=== PATIENT | female | born 1970 | race African-American/Black ===

== ENCOUNTER 2017-05-19 12:31 | Emergency (ER) | payer SELFPAY ==
[~2017-05-19] VITALS: Ht 165.1 cm; Wt 122.5 kg
[~2017-05-19 12:31] MED LIST: ACCUKIT11; ASPI81TA82 PO; BUME1TAB PO; FLUT1SPR9 NASAL; GLIP5 PO; GLUCOMTESTSTRIPS XX; IBUP600T26 PO; SIMV20 PO; SPIR25TA PO; Z.0.LANCETS XX
[2017-05-19 12:36] VITALS: BP 166/86; PULSE 89; RESP 12; TEMP 98.9; O2SAT 99
[2017-05-19] MEDS ORDERED: KETOROLAC TROMETHAMINE 30 MG/ML (IVP) VIAL IV PUSH ONE (13:00)
[2017-05-19] MEDS ORDERED: SODIUM CHLORIDE 0.9% FLUSH 10 ML FLUSH IVF PRN (13:00)
--- NOTE | 2017-05-19 13:04 | PD ---
HPI Chief Complaint: General Weakness Time Seen by Provider: 12:48 Travel History International Travel<30 days: No Contact w/Intl Traveler<30days: No Traveled to known affect area: No History of Present Illness HPI 46-year-old female presents to the emergency department for evaluation of bilateral lower extremity edema. She states she has had symptoms for several years. However, she does not currently have medical insurance and has been off her diuretics for the past 8 months. She states that they bilateral lower extremity edema has been worsening. Patient reports a mild headache at this time. She also states she has been having intermittent chest pain for several years. She has no chest pain at this time. Patient is not currently any prescribed medications. Moderate severity. No exacerbating or alleviating factors. PFSH Past Medical History Hx Anticoagulant Therapy: No Anemia: Yes Cardiovascular Problems: No High Cholesterol: Yes Chemotherapy: No Cerebrovascular Accident: No Diabetes: Yes Diminished Hearing: No Hypertension: Yes Respiratory: No ?: Unknown Menopausal: Yes : 3 Para: 2 Past Surgical History Abdominal Surgery: Yes (PARTIAL HYSTERECTOMY) Hysterectomy: Yes Social History Tobacco Use: No Substance Use: No Allergies-Medications (Allergen,Severity, Reaction): Coded Allergies: No Known Allergies (Verified , 01/17/16) Reported Meds & Prescriptions Reported Meds & Active Scripts Active Potassium Chloride ER (Potassium Chloride) 10 Meq Cap 10 Meq PO DAILY 5 Days Furosemide 20 Mg Tab 20 Mg PO DAILY Review of Systems Except as stated in HPI: all other systems reviewed are Neg Physical Exam Narrative GENERAL: Well-nourished, well-developed female patient, ambulatory. Afebrile. SKIN: Focused skin assessment warm/dry. HEAD: Normocephalic. Atraumatic. EYES: No scleral icterus. No injection or drainage. NECK: Supple, trachea midline. No JVD or lymphadenopathy. CARDIOVASCULAR: Regular rate and rhythm without murmurs, gallops, or rubs. Bilateral radial and pedal pulses are 2+. RESPIRATORY: Breath sounds equal bilaterally. No accessory muscle use. Lungs sounds are clear to auscultation. GASTROINTESTINAL: Abdomen soft, non-tender, nondistended. MUSCULOSKELETAL: No cyanosis. Patient has bilateral 2+ lower extremity edema. BACK: Nontender without obvious deformity. No CVA tenderness. Data Data Last Documented VS Vital Signs Date Time Temp Pulse Resp B/P (MAP) Pulse Ox O2 Delivery O2 Flow Rate FiO2 05/19/17 14:54 77 19 154/85 (108) 99 Room Air 05/19/17 12:36 98.9 Orders Orders Electrocardiogram (05/19/17 12:58) Basic Metabolic Panel (Bmp) (05/19/17 12:58) B-Type Natriuretic Peptide (05/19/17 12:58) Ckmb (Isoenzyme) Profile (05/19/17 12:58) Complete Blood Count With Diff (05/19/17 12:58) Magnesium (Mg) (05/19/17 12:58) Troponin I (05/19/17 12:58) Chest, Single Ap (05/19/17 12:58) Ecg Monitoring (05/19/17 12:58) Bilateral Bp Monitoring (05/19/17 12:58) Iv Access Insert/Monitor (05/19/17 12:58) Oximetry (05/19/17 12:58) Oxygen Administration (05/19/17 12:58) Sodium Chloride 0.9% Flush (Ns Flush) (05/19/17 13:00) Us Leg Venous Doppler Bilat (05/19/17 ) Ketorolac Inj (Toradol Inj) (05/19/17 13:00) Ibuprofen (Motrin) (05/19/17 13:30) CKMB (05/19/17 13:17) CKMB% (05/19/17 13:17) Furosemide (Lasix) (05/19/17 15:45) Ed Discharge Order (05/19/17 15:36) Labs Laboratory Tests Test 05/19/17 13:17 White Blood Count 7.4 TH/MM3 Red Blood Count 4.32 MIL/MM3 Hemoglobin 12.5 GM/DL Hematocrit 38.2 % Mean Corpuscular Volume 88.5 FL Mean Corpuscular Hemoglobin 28.9 PG Mean Corpuscular Hemoglobin Concent 32.6 % Red Cell Distribution Width 15.0 % Platelet Count 165 TH/MM3 Mean Platelet Volume 9.5 FL Neutrophils (%) (Auto) 58.0 % Lymphocytes (%) (Auto) 30.8 % Monocytes (%) (Auto) 6.5 % Eosinophils (%) (Auto) 3.7 % Basophils (%) (Auto) 1.0 % Neutrophils # (Auto) 4.3 TH/MM3 Lymphocytes # (Auto) 2.3 TH/MM3 Monocytes # (Auto) 0.5 TH/MM3 Eosinophils # (Auto) 0.3 TH/MM3 Basophils # (Auto) 0.1 TH/MM3 CBC Comment DIFF FINAL Differential Comment Blood Urea Nitrogen 17 MG/DL Creatinine 0.95 MG/DL Random Glucose 102 MG/DL Calcium Level 9.2 MG/DL Magnesium Level 2.3 MG/DL Sodium Level 137 MEQ/L Potassium Level 4.6 MEQ/L Chloride Level 106 MEQ/L Carbon Dioxide Level 25.0 MEQ/L Anion Gap 6 MEQ/L Estimat Glomerular Filtration Rate 76 ML/MIN Total Creatine Kinase 193 U/L Creatine Kinase MB 0.9 NG/ML Creatine Kinase MB % 0.5 % Troponin I LESS THAN 0.02 NG/ML B-Type Natriuretic Peptide LESS THAN 2 PG/ML MDM Medical Decision Making Medical Screen Exam Complete: Yes Emergency Medical Condition: Yes Medical Record Reviewed: Yes Interpretation(s) chest x-ray - CONCLUSION: 1. No acute cardiopulmonary disease. Differential Diagnosis benign edema versus CHF versus DVT Narrative Course 46-year-old female presents to the emergency department for evaluation of bilateral lower extremity edema has been ongoing for several years, but worsening since she has been off her diuretics. EKG, CBC, BMP, CK, troponin, magnesium, BNP are ordered and pending. Chest x-ray and venous Doppler ultrasound of bilateral lower extremities are ordered and pending. EKG shows sinus rhythm, heart rate 74, no acute ST changes. CBC is unremarkable. CMP shows no acute abnormality. CK is 193. Troponin is less than 0.02. Magnesium is 2.3. BNP is less than 2. Chest x-ray shows no acute cardiopulmonary disease. US shows somewhat limited examination due to patient body habitus; No sonographic evidence for lower extremity DVT. Patient will be discharged with a short term prescription for furosemide. She is to follow up with a primary care physician. I have given her information on the [facility] clinic. The patient was discharged in stable condition with instructions, including return instructions and follow up instructions. Diagnosis Primary Impression: Lower extremity edema Referrals: [facility] call for appointment Patient Instructions: General Instructions, Leg Edema (ED) Departure Forms: Tests/Procedures, Work Release Enter return to work date: May 20, 2017 Additional Instructions: Takes Lasix and potassium as directed. Follow with a primary care physician or the [facility] for further evaluation. Elevate your legs. Compression stockings. Decrease salt in diet. Return to the emergency department for any acute worsening of symptoms. Med/Other Pt SpecificInfo: Prescription(s) given Scripts Potassium Chloride ER (Potassium Chloride ER) 10 Meq Cap 10 MEQ PO DAILY for Electrolyte Replacement for 5 Days, #5 CAP 0 Refills Prov: Irena Wheeler 05/19/17 Furosemide (Furosemide) 20 Mg Tab 20 MG PO DAILY, #5 TAB 0 Refills Prov: Irena Wheeler 05/19/17 Disposition: 01 DISCHARGE HOME Condition: Stable Irena Wheeler May 19, 2017 13:04
[2017-05-19] MEDS ORDERED: IBUPROFEN 600 MG TAB PO ONE (13:30)
[2017-05-19 13:32] LABS: AUTOMATED NEUTROPHIL # 4.3 TH/MM3 (1.8-7.7); BASOPHIL # 0.1 TH/MM3 (0-0.2); EOSINOPHIL # 0.3 TH/MM3 (0-0.4); EOSINOPHIL % 3.7 % (0.0-4.0); HEMATOCRIT 38.2 % (35.0-46.0); HEMO FLAGS DIFF FINAL; LYMPH % 30.8 % (9.0-44.0); LYMPHOCYTE # 2.3 TH/MM3 (1.0-4.8); MEAN CELL VOLUME 88.5 FL (80.0-100.0); MEAN CORPUSCULAR HEMOGLOBIN 28.9 PG (27.0-34.0); MEAN CORPUSCULAR HGB CONC 32.6 % (32.0-36.0); MONO % 6.5 % (0.0-8.0); PLATELET COUNT 165 TH/MM3 (150-450); RED BLOOD COUNT 4.32 MIL/MM3 (4.00-5.30); WHITE BLOOD COUNT 7.4 TH/MM3 (4.0-11.0)
--- NOTE | 2017-05-19 13:37 | RADRPT ---
EXAM DATE/TIME: 05/19/2017 13:12 [facility] COMPARISON: CHEST SINGLE AP, September 06, 2014, 11:37. INDICATIONS : Short of breath. Lower leg swelling. MEDICAL HISTORY : None. SURGICAL HISTORY : None. ENCOUNTER: Initial ACUITY: 4 - 6 days PAIN SCORE: 6/10 LOCATION: Bilateral chest FINDINGS: A single view of the chest demonstrates the lungs to be symmetrically aerated without evidence of mas s, infiltrate or effusion. The cardiomediastinal contours are unremarkable. Osseous structures are intact. CONCLUSION: 1. No acute cardiopulmonary disease. Mariano Villagran MD on May 19, 2017 at 13:35 Board Certified Radiologist. This report was verified electronically.
[2017-05-19 14:00] LABS: ANION GAP 6 MEQ/L (5-15); BLOOD UREA NITROGEN 17 MG/DL (7-18); CHLORIDE 106 MEQ/L (98-107); CREATINE KINASE 193 U/L (26-192); GLOMERULAR FILTRATION RATE 76 ML/MIN (>89); MAGNESIUM 2.3 MG/DL (1.5-2.5); POTASSIUM 4.6 MEQ/L (3.5-5.1); SODIUM (NA) 137 MEQ/L (136-145)
[2017-05-19 14:13] LABS: CKMB 0.9 NG/ML (0.5-3.6)
--- NOTE | 2017-05-19 14:51 | RADRPT ---
EXAM DATE/TIME: 05/19/2017 14:12 [facility] COMPARISON: US LEG BILATERAL VENOUS DOPPLER, September 18, 2014, 12:06. INDICATIONS : Bilateral leg edema. MEDICAL HISTORY : Hypercholesterolemia. Hypertension. Diabetes. Depression. Anemia. SURGICAL HISTORY : section. Partial hysterectomy. Breast reduction. ENCOUNTER: Initial ACUITY: 2 day PAIN SCORE: 8/10 LOCATION: Bilateral leg. TECHNIQUE: Venous ultrasound of the left and right leg was performed from the inguinal ligament to the proximal calf. Real-time, color Doppler and spectral tracing, compression and augmentation techniques were us ed. FINDINGS: Examination somewhat limited due to patient's body habitus. RIGHT LEG: There is normal compressibility of the deep venous system from the inguinal region to the proximal ca lf. No echogenic clot is seen in the lumen of the common femoral, femoral, popliteal, and posterior tibial veins. There is a normal response of the venous system to proximal and distal augmentation an d respiration. LEFT LEG: There is normal compressibility of the deep venous system from the inguinal region to the proximal ca lf. No echogenic clot is seen in the lumen of the common femoral, femoral, popliteal, and posterior tibial veins. There is a normal response of the venous system to proximal and distal augmentation an d respiration. CONCLUSION: 1. Somewhat limited examination due to patient body habitus. 2. No sonographic evidence for lower extremity DVT. Mariano Villagran MD on May 19, 2017 at 14:48 Board Certified Radiologist. This report was verified electronically.
[2017-05-19 14:54] VITALS: BP 154/85; PULSE 77; RESP 19; O2SAT 99
[2017-05-19] MEDS ORDERED: FURO20TA PO (15:28)
[2017-05-19] MEDS ORDERED: POTA10CA PO (15:35)
[2017-05-19] MEDS ORDERED: FUROSEMIDE 20 MG TAB PO ONE (15:45)
--- NOTE | 2017-05-20 22:47 | EKG ---
Date Performed: 05/19/2017 Time Performed: 13:29:26 PTAGE: 46 years EKG: Sinus rhythm NORMAL ECG PREVIOUS TRACING : 09/06/2014 11.25 Compared to prior tracing no significant change DOCTOR: Cruz Zhu Interpretating Date/Time 05/20/2017 22:46:31
== END 2017-05-19 16:06 | disposition home or self-care (01) ==
LOC: NEPC 12:31
DX: R60.0 Localized edema (principal); R51 Headache; R07.9 Chest pain, unspecified; E11.9 Type 2 diabetes mellitus without complications; I10 Essential (primary) hypertension; E78.00 Pure hypercholesterolemia, unspecified; Z79.899 Other long term (current) drug therapy; Z86.2 Personal history of diseases of the blood and blood-forming organs and certain disorders involving the immune mechanism
CPT/HCPCS: 71010; 80048; 82550; 82552; 83735; 83880; 84484; 85025; 93005; 93970; 96374